=== PATIENT | male | born 1985 | race Caucasian/White ===

== ENCOUNTER 2018-08-17 03:02 | Emergency (ER) | payer BC, OTHER ==
[2018-08-17] MEDS: ACETAMINOPHEN 325 MG TAB PO (04:16)
[2018-08-17] MEDS: IBUPROFEN 600 MG TAB PO (04:16)
== END 2018-08-17 06:07 | disposition home or self-care (01) ==
LOC: FTE 03:02
DX: S92.421A Displaced fracture of distal phalanx of right great toe, initial encounter for closed fracture (principal); S92.534A Nondisplaced fracture of distal phalanx of right lesser toe(s), initial encounter for closed fracture; W20.8XXA Other cause of strike by thrown, projected or falling object, initial encounter; Y92.89 Other specified places as the place of occurrence of the external cause
CPT/HCPCS: 29515; 73630; 99283-25